=== PATIENT | male | born 1985 | race Two or more races ===

== ENCOUNTER 2017-03-20 10:53 | Emergency (ER) ==
[2017-03-20 11:06] VITALS: BP 116/74; TEMP 97; BMI 37.4
--- NOTE | 2017-03-20 13:31 | ED.PDOC ---
General ED Provider: Dr. GUMARO ABBOTT Chief Complaint: Abdominal Pain Stated Complaint: mid abdominal pain onset yesterday afternoon. More severe last night and this AM. Beginning to ease up now. No N/V/D/C. No fever or chills. Time Seen by Physician: 13:31 Mode of Arrival: Walk-In Information Source: Patient Exam Limitations: No limitations Primary Care Provider: PATRICE EUCEDA Nursing and Triage Documentation Reviewed and Agree: Yes GI Complaint Exam - Abdominal Pain Complaint/Exam Onset: Sudden Duration: 1 day Symptoms Are: Still present Timing: Constant Initial Severity: Mild (becamer moderate to severe last night and this morning) Current Severity: Mild Location of Pain: Diffuse Character: Reports: Aching, Throbbing, Cramping Aggravating: Reports: None Alleviating: Reports: Spontaneous resolution (not resolved but 8/10 pain at it' s worst, 3/10 currently) AAA Risk Factors: Reports: None Cardiac Risk Factors: Reports: None Testicular Torsion Risk Factors: Reports: None Surgical Obstruction Risk Factors: Reports: None Related Surgical History: Reports: None Abdominal Findings: Present: None (mild mid abdomen tenderness to deep palpation , no rebound or guarding). Absent: Pulsatile mass, Abdominal distention, Unequal femoral pulses, Rebound tenderness, Peritoneal signs, [place]Bur[place]'s Point tender, CVA Tenderness, Hernia, Inguinal swelling Differential Diagnoses: Appendicitis, Diverticulitis, Gastroenteritis, Ischemic Bowel Review of Systems - Review Of Systems Constitutional: Reports: No symptoms Eyes: Reports: No symptoms Ears, Nose, Mouth, Throat: Reports: No symptoms Respiratory: Reports: No symptoms Cardiac: Reports: No symptoms GI: Reports: Abdominal pain : Reports: No symptoms Musculoskeletal: Reports: No symptoms Skin: Reports: No symptoms Neurological: Reports: No symptoms All Other Systems: Reviewed and Negative Past Medical History - Past Medical History Previously Healthy: Yes Endocrine: Reports: None Cardiovascular: Reports: None Respiratory: Reports: None Hematological: Reports: None Gastrointestinal: Reports: None Genitourinary: Reports: None Neuro/Psych: Reports: None Musculoskeletal: Reports: None Cancer: Reports: None - Surgical History General Surgical History: Reports: None - Family History Family History: Reports: Unknown - Social History Smoking Status: Former smoker Hx Substance Use: No Alcohol Screening: Occasionally Lives: Alone - Immunizations Tetanus Shot up to Date: No Influenza Vaccine within 12 Months: No Pneumococcal Vaccine up to Date: No Physical Exam - Physical Exam Appearance: Well-appearing, No pain distress, Well-nourished, Obese Ill-appearing: None Pain Distress: None Respiratory: Airway patent, Breath sounds clear, Breath sounds equal, Respirations nonlabored Cardiovascular: RRR, Pulses normal, No rub, No murmur GI/: Soft, No masses, Bowel sounds normal, No Organomegaly, Tender (mild tenderness across mid abdomen to deep palpation, no rebound, no guarding) Musculoskeletal: Normal strength, ROM intact, No edema, No calf tenderness Skin: Warm, Dry, Normal color Neurological: Sensation intact, Motor intact, Reflexes intact, Cranial nerves intact, Alert, Oriented Psychiatric: Affect appropriate, Mood appropriate Critical Care Note - Critical Care Note Total Time (mins): 0 Course - Course Hematology/Chemistry: 03/20/17 13:52 03/20/17 13:52 Orders, Labs, Meds: Lab Review 03/20/17 03/20/17 03/20/17 12:10 13:52 13:52 WBC 14.07 H RBC 5.47 Hgb 15.5 Hct 44.4 MCV 81.2 MCH 28.3 MCHC 34.9 RDW Coeff of [place] 13.0 Plt Count 350 Immature Gran % (Auto) 0.5 Neut % (Auto) 78.3 Lymph % (Auto) 12.0 [place] % (Auto) 8.9 Eos % (Auto) 0.2 Baso % (Auto) 0.1 Immature Gran # (Auto) 0.1 Neut # 11.0 H Lymph # 1.7 [place] # 1.3 Eos # 0.0 Baso # 0.0 Sodium 139 Potassium 4.4 Chloride 101 Carbon Dioxide 30 Anion Gap 12.4 BUN 7 Creatinine 0.78 Estimated GFR (MDRD) 118.00 BUN/Creatinine Ratio 8.97 Glucose 93 Calcium 9.7 Total Bilirubin 1.14 AST 13 L ALT 18 Alkaline Phosphatase 101 Total Protein 7.6 Albumin 4.1 Globulin 3.5 Albumin/Globulin Ratio 1.17 Amylase 58 Lipase 16 Urine Color Yellow Urine Clarity Clear Urine pH 7.0 Ur Specific [place] 1.010 Urine Protein Negative Urine Glucose (UA) Negative Urine Ketones Negative Urine Blood Trace-intact Urine Nitrite Negative Urine Bilirubin Negative Urine Urobilinogen 0.2 Ur Leukocyte Esterase Negative Ur Squamous Epith Cells Pending Orders Category Date Time Status AMYLASE Stat LAB 03/20/17 13:52 Completed CBC W/ AUTO DIFF Stat LAB 03/20/17 13:52 Completed COMPREHENSIVE METABOLIC PANEL Stat LAB 03/20/17 13:52 Completed LIPASE Stat LAB 03/20/17 13:52 Completed URINALYSIS C & S IF INDICATED Stat LAB 03/20/17 12:10 Results Vital Signs: Temp Pulse Resp BP Pulse Ox 03/20/17 10:54 97.0 F L 74 20 116/74 97 Departure - Departure Time of Disposition: 15:25 Disposition: HOME SELF-CARE Discharge Problem: Gastroenteritis Instructions: Gastroenteritis (ED) Condition: Good Pt referred to PMD for follow-up: No (see doctor if symptoms worsen or fail to resolve) Allergies/Adverse Reactions: Allergies No Known Allergies Allergy (Unverified 03/20/17 11:03) Home Medications: Ambulatory Orders 1 [No Reported Medications] 03/20/17 Disposition Discussed With: Patient
[2017-03-20 13:54] LABS: BILIRUBIN,URINE Negative (NEGATIVE); KETONES,URINE Negative (NEGATIVE); LEUKOCYTE ESTERASE ,URINE Negative (NEGATIVE); NITRITE,URINE Negative (NEGATIVE); PROTEIN,URINE Negative (NEGATIVE); URINE, BLOOD Trace-intact (NEGATIVE)
[2017-03-20 13:58] LABS: BASOPHILS % (AUTO) 0.1 % (0.0-3.0); EOSINOPHILS % (AUTO) 0.2 % (0.0-7.0); HEMATOCRIT 44.4 % (42.0-52.0); HEMOGLOBIN 15.5 g/dl (14.0-18.0); IMMATURE GRANULOCYTE % (AUTO) 0.5 % (0.0-5.0); LYMPHOCYTES # (AUTO) 1.7 K/uL (0.60-3.4); MEAN CORPUSCULAR HEMOGLOBIN 28.3 pg (27.0-31.0); MEAN CORPUSCULAR HGB CONC 34.9 (31.8-35.4); MEAN CORPUSCULAR VOLUME 81.2 fl (80.0-94.0); MONOCYTES # (AUTO) 1.3 K/uL (0.4-2.0); MONOCYTES % (AUTO) 8.9 (0-10); NEUTROPHILS % (AUTO) 78.3; PLATELET COUNT 350 10^3/uL (140-440); RED BLOOD COUNT 5.47 10^6/ul (4.70-6.10); WHITE BLOOD COUNT 14.07 K/ul (4.2-10.2)
[2017-03-20 14:03] LABS: ADD URINE MICROSCOPIC YES
[2017-03-20 14:38] LABS: ALBUMIN 4.1 g/dL (3.4-5.0); ALBUMIN/GLOBULIN RATIO 1.17; ANION GAP 12.4; BILIRUBIN,TOTAL 1.14 mg/dL (0.00-1.20); BUN/CREATININE RATIO 8.97; CALCIUM 9.7 mg/dL (8.2-10.2); CREATININE 0.78 mg/dL (0.60-1.10); POTASSIUM 4.4 mmol/L (3.5-5.1); TOTAL PROTEIN 7.6 g/dL (6.4-8.2)
== END 2017-03-20 15:55 | disposition home or self-care (01) ==
LOC: ED 10:53
DX: K52.9 Noninfective gastroenteritis and colitis, unspecified (principal)
CPT/HCPCS: 36415; 80053; 81001; 82150; 83690; 85025; 99283

== ENCOUNTER 2017-03-21 11:05 | Outpatient (CLI) ==
[2017-03-20 11:06] VITALS: BMI 37.4
--- NOTE | 2017-03-21 12:29 | CT ---
EXAM: CT Abdomen without contrast. CT Pelvis without contrast. HISTORY: Right-sided abdominal pain for 2-3 days. COMPARISON: None available. TECHNIQUE: Multiple axial images of the abdomen and pelvis were obtained without intravenous contras t. Images were reformatted in the coronal plane. FINDINGS: Please note that evaluation of the abdominal and pelvic structures is limited due to lack of intravenous contrast. The lung bases are clear. No acute osseous abnormality detected. The liver, gallbladder, pancreas, spleen, adrenal glands, and kidneys demonstrate normal contour. No calcified renal stones or hydronephrosis identified. Appendicolith present at the base of the appendix. The distal appendix is dilated to 1.2 cm, and the re is moderate adjacent inflammation. No free air or circumscribed drainable fluid collection identi fied. There is no evidence for bowel obstruction. Small fat-containing umbilical hernia noted. Uri nary bladder is unremarkable. IMPRESSION: Critical result: Acute appendicitis with appendicolith. Comment: Findings were discussed with Dr. Cantrell at 12:24 p.m. on 03/21/2017.
== END 2017-03-21 11:06 | disposition home or self-care (01) ==
LOC: RAD 11:05
PROVIDERS: ATTEND Family Medicine
DX: R10.9 Unspecified abdominal pain (principal)